=== PATIENT | female | born 1965 | race Caucasian/White ===

== ENCOUNTER 2022-06-10 21:49 | Emergency (ER) | payer BC ==
[~2022-06-10] VITALS: Ht 160 cm; Wt 86.2 kg
[2022-06-10 21:52] VITALS: BP_SYST 130
--- NOTE | 2022-06-10 21:55 | NUR ---
PATIENT BROUGHT IN BY SISTER AFTER ROLLING RIGHT ANKLE/FOOT AT [facility] AT APROX 1630. GIVEN ICE AND TWO MOTRIN AT APROX 1630 FOR COMFORT BY [facility]. PATIENT UNABLE TO AMBULATE INJURED FOOT.
[2022-06-10] MEDS ORDERED: IBUP-1971 PO (23:25)
[2022-06-10] MEDS ORDERED: METH-634 PO (23:25)
--- NOTE | 2022-06-10 23:30 | NUR ---
DR. SNOWDEN ASSESSING PATIENT IN TRIAGE.
--- NOTE | 2022-06-10 23:50 | NUR ---
Patient given written and verbal discharge instructions and verbalizes understanding. ER MD discussed with patient the results and treatment provided. Patient in stable condition. ID arm band removed. IV catheter removed intact and dressing applied, no active bleeding. Rx of MOTRIN, ROBAXIN given. Patient educated on pain management and to follow up with PMD. Pain Scale . Opportunity for questions provided and answered. Medication side effect fact sheet provided.
== END 2022-06-10 23:50 | disposition home or self-care (01) ==
LOC: SED 21:49
DX: S93.601A Unspecified sprain of right foot, initial encounter (principal); Z88.5 Allergy status to narcotic agent; Z79.899 Other long term (current) drug therapy; W01.0XXA Fall on same level from slipping, tripping and stumbling without subsequent striking against object, initial encounter; Y93.89 Activity, other specified; Y92.89 Other specified places as the place of occurrence of the external cause; Y99.8 Other external cause status
CPT/HCPCS: 99284